=== PATIENT | female | born 1980 | race Caucasian/White ===

== ENCOUNTER 2016-05-09 21:35 | Inpatient (IN) | payer OTHER ==
[2016-05-09 23:17] VITALS: BMI 33.8
[2016-05-10 08:34] LABS: Basophils % (A) 0 %; CH 29.5; CHCM 34.3; Eosinophils # (A) 0.1 k/uL (0-0.7); Eosinophils % (A) 1 %; HDW 2.69; HGB 12.9 gm/dL (11.4-16.0); Luc # (Auto) 0.28; Luc % (Auto) 2; Lymphocytes # (A) 1.2 k/uL (1.0-4.8); Lymphocytes % (A) 9 %; MCH 29.4 pg (25.0-35.0); MCHC 33.9 g/dL (31.0-37.0); MCV 86.5 fL (80.0-100.0); Monocytes # (A) 0.7 k/uL (0-1.0); Monocytes % (A) 5 %; Neutrophils # (A) 11.3 k/uL (1.3-7.7); Neutrophils % (A) 83 %; RBC 4.39 m/uL (3.80-5.40); RDW 14.6 % (11.5-15.5); WBC 13.6 k/uL (3.8-10.6); WBC (Perox) 14.88
[2016-05-10] MEDS ORDERED: LACTATED RINGERS 1,000 ML IV ONE (09:00)
[2016-05-10] MEDS ORDERED: LACTATED RINGERS 1,000 ML IV SCH (09:00)
[2016-05-10] MEDS ORDERED: CITRIC ACID-SODIUM CITRATE 15 ML CUP PO ONE (09:00)
[2016-05-10] MEDS ORDERED: ceFAZolin 2 GM in SODIUM CHLORIDE 0.9% 100 ML IVPB ONE (09:15)
[2016-05-10] MEDS ORDERED: ONDANSETRON 4 MG/2 ML VIAL ONE (09:47)
[2016-05-10] MEDS ORDERED: OXYTOCIN 10 UNIT/ML 1 ML VIAL IM ONE (09:47)
[2016-05-10] MEDS ORDERED: ceFAZolin 1,000 MG VIAL ONE (09:47)
[2016-05-10] MEDS ORDERED: MORPHINE SULFATE (PF) 0.3 MG/0.3 ML SYR ONE (09:47)
[2016-05-10] MEDS ORDERED: NALBUPHINE 10 MG/ML AMPUL ONE (09:47)
[2016-05-10] MEDS ORDERED: LACTATED RINGERS 1,000 ML BAG IV ONE (09:47)
[2016-05-10] MEDS ORDERED: KETOROLAC 30 MG/ML 1 ML VIAL ONE (09:47)
[2016-05-10] MEDS ORDERED: OXYTOCIN 30 UNITS/500 ML NS 30 UNIT in SALINE 1 500ML.BAG IV SCH (10:10)
[2016-05-10] MEDS ORDERED: Acetaminophen-Codeine 300-30mg TAB PO PRN (10:42)
[2016-05-10] MEDS ORDERED: ONDANSETRON 4 MG/2 ML VIAL IVP PRN (10:42)
[2016-05-10] MEDS ORDERED: diphenhydrAMINE 25 MG CAP PO PRN (10:42)
[2016-05-10] MEDS ORDERED: SIMETHICONE 80 MG CHEWABLE PO PRN (10:42)
[2016-05-10] MEDS ORDERED: NALOXONE 0.4 MG/ML 1 ML VIAL IV PRN ×2 (10:42→10:59)
[2016-05-10] MEDS ORDERED: LANOLIN CREAM 5 GM TUBE TOPICAL PRN (10:42)
[2016-05-10] MEDS ORDERED: METOCLOPRAMIDE 5 MG/ML 2 ML VIAL IVP PRN ×2 (10:42→10:59)
[2016-05-10] MEDS ORDERED: ZOLPIDEM 5 MG TAB PO PRN (10:42)
[2016-05-10] MEDS ORDERED: diphenhydrAMINE 50 MG CAP PO PRN (10:42)
[2016-05-10] MEDS ORDERED: ACETAMINOPHEN TAB 325 MG TAB PO PRN (10:42)
[2016-05-10] MEDS ORDERED: diphenhydrAMINE 50 MG/ML 1 ML VIAL IVP PRN ×3 (10:42→10:59)
--- NOTE | 2016-05-10 10:50 | P.HPOB ---
History of Present Illness H&P Date: 05/10/16 Chief Complaint: 39+ weeks, breech presentation The patient is a 35-year-old 2 para 0010 admitted at 39+ weeks as established by last menstrual period and confirmed by 18 week ultrasound. She is admitted with a known breech presentation for primary low-transverse section. She was counseled regarding potential options and agreed to undergo section. She does carry a history of a LEEP procedure in the past but otherwise her has been uncomplicated. She fell into the category of advanced maternal age and declined screening. Group B strep status is negative. Obstetrical history 2 para 0010 with one early miscarriage requiring D& C. Current statistics are listed above. EDC of 05/16/2016 was established by last menstrual period and confirmed by 18 week ultrasound. Laboratory workup done traits of blood type of O+ with a negative antibody screen. Rubella status is immune. The remainder of her laboratory workup is within normal limits 1 hour Glucola was normal and group B strep status is negative. Gynecologic history is unremarkable with no history of any infections to include STDs. Review of Systems Review of systems is confined to history of present illness. Past Medical History Past Medical History: No Reported History History of Any Multi-Drug Resistant Organisms: None Reported Additional Past Surgical History / Comment(s): D&C, [place] Teeth Extraction Past Anesthesia/Blood Transfusion Reactions: No Reported Reaction Past Psychological History: No Psychological Hx Reported Smoking Status: Former smoker Past Alcohol Use History: None Reported Additional Past Alcohol Use History / Comment(s): Smoked 2 cigarettes per day for 15 yrs, quit in 07/2015. Past Drug Use History: None Reported - Past Family History Mother Family Medical History: Cancer Additional Family Medical History / Comment(s): Breast cancer Medications and Allergies Home Medications Medication Instructions Recorded Confirmed Type Pnv with Ca,No.72/Iron/FA 1 tab PO DAILY 05/03/16 05/09/16 History [ Plus Tablet] Allergies Allergy/AdvReac Type Severity Reaction Status Date / Time No Known Allergies Allergy Verified 05/09/16 23:09 Exam - Vital Signs Vital signs: Vital Signs Temp Pulse Resp BP 05/09/16 23:10 98.1 F 73 16 139/84 05/09/16 22:30 98.1 F 73 16 139/84 05/09/16 21:50 97.5 F L 72 16 120/66 Intake and Output 05/09/16 05/10/16 05/10/16 22:59 06:59 14:59 Other: # Voids 1 Weight 86.636 kg In general, this is a well-developed, well-nourished white female in no acute distress. Her heart has a regular rhythm and rate without murmur. Her lungs are clear to auscultation bilaterally in all [place]. Her abdomen is gravid, nondistended, has normal active bowel sounds, is soft, nontender, and without any palpable masses aside from uterine fundus. Her extremities without any cyanosis, clubbing, or significant edema and are nontender to palpation bilaterally. Pelvic examination is deferred. Bedside ultrasound demonstrates or reconfirms breech presentation. Results Result Diagrams: 05/10/16 08:16 Abnormal Lab Results - Last 24 Hours (Table) 05/10/16 Range/Units 08:16 WBC 13.6 H (3.8-10.6) k/uL Neutrophils # 11.3 H (1.3-7.7) k/uL Assessment and Plan (1) Breech presentation Status: Acute (2) Term Status: Acute Plan: The patient is admitted for primary low-transverse section. The risks and complications of the procedure been thoroughly discussed and she has agreed to proceed.
[2016-05-10] MEDS ORDERED: KETOROLAC 30 MG/ML 1 ML VIAL IVP PRN (10:59)
[2016-05-10] MEDS ORDERED: MORPHINE SULFATE 4 MG/ML SYRINGE IVP PRN (10:59)
--- NOTE | 2016-05-10 11:00 | P.OP ---
Date of Procedure: 05/10/16 Preoperative Diagnosis: #1. 39 and one sevenths weeks intrauterine #2. Breech presentation # 3. Advanced maternal age Postoperative Diagnosis: Same plus #4. Bicornuate uterus #5. Fibroid uterus Procedure(s) Performed: Primary low-transverse section Anesthesia: spinal Surgeon: Andrea Dubose Wire Coiler #1: Claudia Rajput Estimated Blood Loss (ml): 500 IV fluids (ml): 800 Urine output (ml): 200 Pathology: other (Placenta) Condition: stable Disposition: floor Operative Findings: The patient was taken to the operating room where she was delivered of a viable 8 lbs. 0 oz. baby boy in the complete breech presentation with Apgars of 8 at 1 minute and 9 at 5 minutes. The placenta was delivered manually, intact, and grossly normal with a grossly normal three-vessel cord. The uterus was noted to be didelphic in nature with the in the left horn. There was a small relatively rudimentary right horn present. Additionally there were uterine fibroids noted with one large roughly 3 cm subserosal fibroid on the central fundus of the left horn. There were scattered smaller fibroids less than 1 cm on the both horns. The tubes and ovaries were otherwise normal to inspection. Description of Procedure: The patient was prepped and draped in usual fashion after spinal anesthesia was administered by the anesthesiologist. A Pfannenstiel incision was made and extended into the abdominal cavity without difficulty. The bladder peritoneum was noted to be distal to the site of incision and the uterus and was left intact. A 2 cm incision was made in the transverse plane of the lower uterine segment to enter the uterus at which time clear fluid was noted. The incision was extended in both directions using the bandage scissors. The breech was encountered with feet down in a complete breech presentation. The breech was delivered through the incision and the remainder of the infant delivered onto the field with standard breech maneuvers. The nose and mouth were thoroughly suctioned. The cord was doubly clamped, cut, and the passed resuscitative measures with weight and Apgars as noted above. A segment of cord was doubly clamped, cut, and set aside should cord gases become necessary. The placenta was delivered manually and intact as noted above. The uterus was exteriorized at which time the didelphic uterine findings were noted as well as the fibroids. The interior cavity of the left horn of the uterus was swept of any remaining placental or membranous fragments. The fundal portion of the left horn was also fairly thin at the time of delivery. The margins of the incision were grasped with [place] clamps and the incision was closed in 2 layers. The first layer was a running locking stitch of 0 chromic catgut from margin to margin followed by a running imbricating layer of 0 chromic catgut from margin to margin. One point of bleeding at the right angle of the incision was noted following closure and was made hemostatic with a figure-of- eight stitch of 0 chromic catgut. The posterior cul-de-sac was suctioned with a guard and the uterine and ovarian findings were again as noted above. The uterus was replaced within the abdominal cavity after suctioning the posterior cul-de-sac with a guard. The the gutters were swept of any remaining blood, fluid, or clot. The incision was reexamined and found to be hemostatic. Once hemostasis was deemed adequate, the parietal peritoneum was loosely reapproximated and layer of muscles examined and found to be hemostatic. The fascia was closed with 2 running stitches of 0 Vicryl proceeding from lateral margins to the midpoint. The subcutaneous tissues were irrigated, made hemostatic with the Bovie and not closed as they were less than 1 cm in thickness. The skin was reapproximated with a running subcuticular stitch of 4- 0 Vicryl from margin to margin. This was followed by half-inch Steri-Strips placed with Mastisol. Estimated blood loss for the case was 500 mL. There are no complications. All sponge, instrument, and needle counts were correct. Both mother and are resting comfortably in recovery.
[2016-05-10] MEDS: KETOROLAC 30 MG/ML 1 ML VIAL IVP PRN (17:17)
[2016-05-10] MEDS: SENNOSIDES-DOCUSATE SODIUM 1 EACH TAB PO SCH (23:10)
[2016-05-11] MEDS: KETOROLAC 30 MG/ML 1 ML VIAL IVP PRN ×3 (01:35→15:00)
[2016-05-11 06:11] LABS: Basophils % (A) 0 %; CH 28.9; CHCM 33.3; Eosinophils # (A) 0.2 k/uL (0-0.7); Eosinophils % (A) 2 %; HCT 29.3 % (34.0-46.0); HDW 2.58; Luc # (Auto) 0.18; Luc % (Auto) 2; Lymphocytes # (A) 1.3 k/uL (1.0-4.8); Lymphocytes % (A) 12 %; MCH 28.3 pg (25.0-35.0); MCHC 32.4 g/dL (31.0-37.0); MCV 87.4 fL (80.0-100.0); Mean Platelet Volume 7.9; Monocytes # (A) 0.6 k/uL (0-1.0); Monocytes % (A) 5 %; Neutrophils # (A) 8.1 k/uL (1.3-7.7); Neutrophils % (A) 79 %; RBC 3.36 m/uL (3.80-5.40); RDW 14.6 % (11.5-15.5); WBC 10.3 k/uL (3.8-10.6); WBC (Perox) 10.55
[2016-05-11 06:16] LABS: HGB 9.5 gm/dL (11.4-16.0)
[2016-05-11] MEDS: SENNOSIDES-DOCUSATE SODIUM 1 EACH TAB PO SCH ×2 (08:47→22:05)
--- NOTE | 2016-05-11 10:33 | P.PNOBGPC ---
Subjective - Subjective Principal diagnosis: Postop day 1 Interval history: Feeling very well, pain well controlled. Patient reports: Reports appetite normal, Reports voiding normally, Reports pain well controlled, Reports ambulating normally : doing well Objective - Vital Signs Latest vital signs: Vital Signs Temp Pulse Resp BP Pulse Ox 05/11/16 09:00 98.2 F 88 16 111/65 100 05/11/16 07:00 100 05/11/16 05:00 96 05/11/16 04:00 97.5 F L 74 16 107/72 96 05/11/16 03:00 96 05/11/16 01:00 96 05/11/16 00:00 98.5 F 93 16 106/63 05/10/16 23:00 96 05/10/16 21:00 97.7 F 69 16 130/80 99 05/10/16 18:42 80 18 114/68 95 05/10/16 17:00 98.1 F 79 16 122/69 97 05/10/16 15:15 97.7 F 77 18 113/68 95 05/10/16 15:00 95 05/10/16 13:59 73 18 110/70 94 L 05/10/16 12:42 79 18 126/59 98 05/10/16 12:12 98.3 F 83 18 108/59 05/10/16 11:59 98 05/10/16 11:42 67 18 119/60 05/10/16 11:27 82 18 112/63 05/10/16 11:12 75 18 112/64 94 L 05/10/16 10:57 97.5 F L 70 16 109/59 96 05/10/16 10:42 97.5 F L 74 16 115/57 98 Intake and Output 05/10/16 05/11/16 05/11/16 22:59 06:59 14:59 Intake Total 480 Output Total 300 200 300 Balance 180 -200 -300 Intake: Oral 480 Output: Urine 300 200 300 Uretheral (Crisostomo) 300 Other: # Voids 1 1 # Bowel Movements 0 - Exam Extremities: Present: normal Abdomen: Present: normal appearance, soft. Absent: distention, tenderness Incision: Present: normal, dry, intact. Absent: erythematous Uterus: Present: normal - Labs Labs: Abnormal Lab Results - Last 24 Hours (Table) 03/25/17 Range/Units 05:53 RBC 3.36 L (3.80-5.40) m/uL Hgb 9.5 L D (11.4-16.0) gm/dL Hct 29.3 L (34.0-46.0) % Neutrophils # 8.1 H (1.3-7.7) k/uL Assessment and Plan (1) Advanced maternal age (AMA) in Current Visit: Yes Status: Acute Code(s): [id number] - SNOMED Code(s): 508506445 (2) Bicornuate uterus Current Visit: Yes Status: Acute Code(s): Q51.3 - BICORNATE UTERUS SNOMED Code(s): 65322781 (3) Breech presentation Current Visit: Yes Status: Acute Code(s): O32.1XX0 - MATERNAL CARE FOR BREECH PRESENTATION, UNSP SNOMED Code(s): 5177262 (4) Fibroid uterus Current Visit: Yes Status: Acute Code(s): D25.9 - LEIOMYOMA OF UTERUS, UNSPECIFIED SNOMED Code(s): 88488476 (5) S/P section Narrative/Plan: Postop day 1 status post primary low transverse section. I reviewed in detail findings at the time of surgery, specifically bicornuate uterus. All questions were answered. She is breast-feeding successfully and possible discharge home tomorrow or Friday. Current Visit: Yes Status: Acute Code(s): Z98.891 - HISTORY OF UTERINE SCAR FROM PREVIOUS SURGERY SNOMED Code(s): 419022163 (6) Term Current Visit: Yes Status: Acute Code(s): Z34.80 - ENCOUNTER FOR SUPRVSN OF NORMAL , UNSP TRIMESTER SNOMED Code(s): 29686538
[2016-05-11] MEDS: IBUPROFEN 600 MG TAB PO PRN (22:04)
[2016-05-12] MEDS: Acetaminophen-Codeine 300-30mg TAB PO PRN ×3 (02:16→21:46)
[2016-05-12] MEDS: LACTATED RINGERS 1,000 ML IV SCH ×3 (05:34→05:36)
[2016-05-12] MEDS: SENNOSIDES-DOCUSATE SODIUM 1 EACH TAB PO SCH ×2 (07:39→19:35)
[2016-05-12] MEDS: IBUPROFEN 600 MG TAB PO PRN ×2 (07:40→18:36)
--- NOTE | 2016-05-12 11:35 | P.PNOBGPC ---
Subjective - Subjective Principal diagnosis: Postop day 2 Interval history: Feeling well. Struggling somewhat with breast-feeding. Patient reports: Reports appetite normal, Reports voiding normally, Reports pain well controlled, Reports ambulating normally, Denies nauseated Toyah: doing well Objective - Vital Signs Latest vital signs: Vital Signs Temp Pulse Resp BP 05/12/16 07:56 97.6 F 97 16 112/73 05/11/16 23:47 97.9 F 91 15 106/67 05/11/16 17:00 98.2 F 80 16 120/65 Intake and Output 05/11/16 05/12/16 05/12/16 22:59 06:59 14:59 Other: # Voids 2 - Exam Extremities: Present: normal Abdomen: Present: normal appearance, soft. Absent: distention, tenderness Incision: Present: normal, dry, intact Uterus: Present: normal, firm Assessment and Plan (1) Advanced maternal age (AMA) in Current Visit: Yes Status: Acute Code(s): [id number] - SNOMED Code(s): 877341879 (2) Bicornuate uterus Current Visit: Yes Status: Acute Code(s): Q51.3 - BICORNATE UTERUS SNOMED Code(s): 45815869 (3) Breech presentation Current Visit: Yes Status: Acute Code(s): O32.1XX0 - MATERNAL CARE FOR BREECH PRESENTATION, UNSP SNOMED Code(s): 5079883 (4) Fibroid uterus Current Visit: Yes Status: Acute Code(s): D25.9 - LEIOMYOMA OF UTERUS, UNSPECIFIED SNOMED Code(s): 20852023 (5) S/P section Narrative/Plan: Postop day 2 status post repeat low transverse section. Recovering well. Probable discharge home tomorrow. Current Visit: Yes Status: Acute Code(s): Z98.891 - HISTORY OF UTERINE SCAR FROM PREVIOUS SURGERY SNOMED Code(s): 053946738 (6) Term Current Visit: Yes Status: Acute Code(s): Z34.80 - ENCOUNTER FOR SUPRVSN OF NORMAL , UNSP TRIMESTER SNOMED Code(s): 53794769
[2016-05-13] MEDS: IBUPROFEN 600 MG TAB PO PRN ×2 (00:46→07:43)
[2016-05-13] MEDS: Acetaminophen-Codeine 300-30mg TAB PO PRN ×2 (03:41→11:12)
[2016-05-13] MEDS: SENNOSIDES-DOCUSATE SODIUM 1 EACH TAB PO SCH (07:44)
[2016-05-13 08:33] VITALS: BP 121/68; PULSE 74; RESP 14; TEMP 97.4
--- NOTE | 2016-05-13 09:28 | P.DS ---
Providers Date of admission: 05/09/16 22:29 Expected date of discharge: 05/13/16 Attending physician: Andrea Dubose Primary care physician: Andrea Dubose - Discharge Diagnosis(es) (1) Breech presentation Current Visit: Yes Status: Acute (2) Term Current Visit: Yes Status: Acute (3) S/P section Current Visit: Yes Status: Acute Hospital Course: The patient is a 35-year-old 2 para 0010 admitted at 39+ weeks by good dating parameters. She is admitted with breech presentation for primary low- transverse section. Her was essentially uncomplicated though she was categorized as advanced maternal age and declined testing. She was taken to the operating room where she was delivered by primary low-transverse section of a viable 8 lbs. 0 oz. baby boy with Apgars of 8 at 1 minute and 9 at 5 minutes in the complete breech presentation. Intraoperatively, she was noted to have a bicornuate uterus with in the left horn. She additionally was found with fibroids. Her postoperative course was unremarkable with vital signs remaining stable and her temperature was afebrile throughout. She was deemed stable for discharge by post operative day #3 and was discharged home to follow-up in the office in 2 weeks' time for an incision check and 6 weeks time routinely. Discharge instructions included calling for any significantly increased bleeding or foul-smelling lochia, significantly increased fever abdominal pain, perineal complaints, breast complaints, incisional complaints, or anything else that concerned her. She was additionally instructed to have nothing in the vagina for at least 6 weeks time to include intercourse. She was also instructed to do no heavy lifting over the same period of time and to do no driving until off of all pain medications or 2 weeks' time, whichever came first. She understood her instructions and agrees to follow up as noted above. Discharge medications included continued vitamins as she has opted to breast-feed. She is additionally provided with a prescription for Tylenol 3, 1-2 by mouth every 6 hours when necessary pain #30 dispensed with no refills. Maternal blood type is O+ and rubella status is immune. Discharge hemoglobin and hematocrit were 9.5 and 29.3 respectively. Procedures: #1. Primary low-transverse section Patient Condition at Discharge: Good Plan - Discharge Summary New Discharge Prescriptions: Acetaminophen-Codeine 300-30mg [Tylenol #3] 2 tab PO Q6H PRN #30 tablet PRN Reason: Pain Discharge Medication List Pnv with Ca,No.72/Iron/FA [ Plus Tablet] 1 tab PO DAILY 05/03/16 [ History] Acetaminophen-Codeine 300-30mg [Tylenol #3] 2 tab PO Q6H PRN #30 tablet [Rx] Follow up Appointment(s)/Referral(s): Andrea Dubose MD [Primary Care Provider] - 2 Weeks Discharge Disposition: HOME SELF-CARE
== END 2016-05-13 12:20 | disposition home or self-care (01) | DRG 766 ==
LOC: FBPOP 21:35 → 4FBP 22:29
PROVIDERS: ADMIT Obstetrics & Gynecology; ATTEND Obstetrics & Gynecology
PROC: 10D00Z1 Extraction of Products of Conception, Low, Open Approach (ICD-10-PCS; principal; 2016-05-10)
DX: O32.1XX0 Maternal care for breech presentation, not applicable or unspecified (principal); D25.2 Subserosal leiomyoma of uterus; O34.03 Maternal care for unspecified congenital malformation of uterus, third trimester; O34.13 Maternal care for benign tumor of corpus uteri, third trimester; Q51.3 Bicornate uterus; Z37.0 Single live birth; Z3A.39 39 weeks gestation of pregnancy; Z87.891 Personal history of nicotine dependence; Z79.899 Other long term (current) drug therapy
CPT/HCPCS: 59025; 85025; 86850; 86900; 86901; 88307; 99213

== ENCOUNTER → 2019-11-18 | Outpatient (CLI) | payer MEDICAID ==
--- NOTE | 2019-11-19 09:16 | MM ---
Reason for exam: screening (asymptomatic). Last mammogram was performed 4 years and 3 months ago. History: Patient is nulliparous. Family history of breast cancer in mother at age 65. Physical Findings: A clinical breast exam by your physician is recommended on an annual basis and results should be correlated with mammographic findings. MG 3D Screening Mammo W/Cad Bilateral CC and MLO view(s) were taken. Prior study comparison: August 03, 2015, bilateral MG 3d screening mammo w/cad. The breast tissue is heterogeneously dense. This may lower the sensitivity of mammography. Focal asymmetry central inner left breast posterior third position. This finding is changed when compared with previous exams. ASSESSMENT: Incomplete: need additional imaging evaluation, BI-RAD 0 RECOMMENDATION: Special view mammogram of the left breast. If lesion persists on supplemental views, image directed ultrasound is recommended. [facility] will attempt to contact patient to return for supplemental views and ultrasound if indicated.
== END | disposition home or self-care (01) ==
LOC: RADMAMWWP 11:03
PROVIDERS: ATTEND Obstetrics & Gynecology
DX: Z12.31 Encounter for screening mammogram for malignant neoplasm of breast (principal); Z80.3 Family history of malignant neoplasm of breast
CPT/HCPCS: 77063; 77067

== ENCOUNTER → 2019-11-26 | Outpatient (CLI) | payer MEDICAID ==
--- NOTE | 2019-11-29 10:25 | MM ---
Reason for exam: additional evaluation requested from abnormal screening. Last mammogram was performed less than 1 month ago. History: Patient had first child at age 35. Family history of breast cancer in mother at age 65. Physical Findings: Nurse did not find any significant physical abnormalities on exam. MG Work Up Mamm w CAD LT Spot compression CC, spot compression MLO, and LM view(s) were taken of the left breast. Prior study comparison: November 18, 2019, bilateral MG 3d screening mammo w/cad. August 03, 2015, bilateral MG 3d screening mammo w/cad. Asymmetric breast tissue left breast middle posterior lower inner quadrant, not changed since 2015. No definite new lesion on additional images. These results were verbally communicated with the patient and result sheet given to the patient on 11/26/19. ASSESSMENT: Negative, BI-RAD 1 RECOMMENDATION: Return to routine screening mammogram schedule for both breasts.
== END | disposition home or self-care (01) ==
LOC: RADMAMWWP 08:54
PROVIDERS: ATTEND Obstetrics & Gynecology
DX: R92.8 Other abnormal and inconclusive findings on diagnostic imaging of breast (principal)
CPT/HCPCS: 77065